=== PATIENT | female | born 1945 | race Caucasian/White ===

== ENCOUNTER 2017-10-24 09:26 | Outpatient (CLI) | payer OTHER | END 2017-10-24 09:28 | disposition home or self-care (01) | LOC: SONOGRAMA 09:26 | DX: E04.1 Nontoxic single thyroid nodule (principal) ==

== ENCOUNTER 2018-04-03 08:58 | Outpatient (CLI) | payer OTHER | END 2018-04-03 09:12 | disposition home or self-care (01) | LOC: SONOGRAMA 08:58 | DX: E04.1 Nontoxic single thyroid nodule (principal) ==

== ENCOUNTER 2020-12-01 11:02 | Outpatient (CLI) | payer OTHER | END 2020-12-01 11:04 | disposition home or self-care (01) | LOC: SONOGRAMA 11:02 | PROVIDERS: ATTEND Pathology Anatomic Pathology & Clinical Pathology | DX: E04.2 Nontoxic multinodular goiter (principal); D34 Benign neoplasm of thyroid gland; E04.8 Other specified nontoxic goiter ==

== ENCOUNTER 2022-06-21 09:19 | Outpatient (CLI) | payer OTHER | END 2022-06-21 09:21 | disposition home or self-care (01) | LOC: SONOGRAMA 09:19 | PROVIDERS: ATTEND Pathology Anatomic Pathology & Clinical Pathology | DX: D34 Benign neoplasm of thyroid gland (principal); E06.5 Other chronic thyroiditis; E04.9 Nontoxic goiter, unspecified ==